=== PATIENT | female | born 1975 | race Caucasian/White ===

== ENCOUNTER → 2016-09-07 | Outpatient (CLI) | payer BC ==
[~2016-09-07] MED LIST: LEVO75TA PO; PRENTAB26 PO
== END | disposition home or self-care (01) ==
LOC: C.PAPS 10:32
PROVIDERS: ATTEND Physician Assistant
DX: Z01.419 Encounter for gynecological examination (general) (routine) without abnormal findings (principal)

== ENCOUNTER → 2017-08-28 | Outpatient (CLI) | payer BC ==
--- NOTE | 2017-09-04 08:12 | CODING QUERY MEDICAL NECESSITY ---
CQTREATMENT RENDERED WITHOUT A DIAGNOSIS To promote full compliance with coding requirements relating to patient care, physician participation is requested in all cases of engraver machine uncertainty. Please assist us with providing a diagnosis/symptom for the test(s) below: A diagnosis/symptom was not documented on your Order. A valid diagnosis/symptom is required to bill all insurances. Please remember that we are unable to code a diagnosis of rule out, probable, possible, questionable, or suspected. Tests that require a diagnosis: DOS 08/28/17 STREP SCREEN THROAT Provider Signature: Date: Thank you Sofie Resendiz Health Information Management Once completed, please kindly fax back to [phone] For questions please call [phone]
== END | disposition home or self-care (01) ==
LOC: C.LAB 16:49
PROVIDERS: ATTEND Internal Medicine Hematology & Oncology
DX: J02.9 Acute pharyngitis, unspecified (principal)

== ENCOUNTER → 2017-08-30 | Outpatient (CLI) | payer BC ==
--- NOTE | 2017-09-02 13:58 | MAMMOGRAPHY REPORT ---
BILATERAL FIRST EVER DIGITAL SCREENING MAMMOGRAM TOMOSYNTHESIS WITH CAD: 08/30/2017 CLINICAL HISTORY: Routine screening. Baseline exam. TECHNIQUE: Breast tomosynthesis in addition to standard 2D mammography was performed. Current study was also evaluated with a Computer Aided Detection (CAD) system. COMPARISON: No prior exams were available for comparison. BREAST COMPOSITION: There are scattered areas of fibroglandular density in both breasts. FINDINGS: There are prominent lymph nodes in bilateral axillary regions, which could be reactive due to a reported history of psoriasis, however, targeted ultrasound is recommended for further evaluatio n. Additionally, there is an ovoid 19 mm asymmetry seen within the left upper outer quadrant middle depth on the tomosynthesis images, which may represent normal fibroglandular tissue although spot com pression tomosynthesis views and possible breast ultrasound are recommended for further evaluation. The remainder of both breasts are negative, without suspicious masses, calcifications, or areas of ar chitectural distortion noted. IMPRESSION: ACR BI-RADS CATEGORY 0: INCOMPLETE EVALUATION: NEED ADDITIONAL IMAGING EVALUATION Prominent bilateral axillary lymph nodes and left upper outer quadrant asymmetry, for which additiona l imaging evaluation is recommended. The patient will be called to schedule an appointment. Approximately 10% of breast cancers are not detected with mammography. A negative mammographic report should not delay biopsy if a clinically suggestive mass is present. Padmaja Barajas M.D. ah/:08/30/2017 16:44:00 [employer] Service Manager: Ivanna SOLIS(Brianne)(M), [facility] letter sent: Addl Imaging 0 BI-RADS Code: ACR BI-RADS Category 0: Incomplete Evaluation: Need Additional Imaging Evaluation
== END | disposition home or self-care (01) ==
LOC: C.MAMM 07:49
PROVIDERS: ATTEND Obstetrics & Gynecology
DX: Z12.31 Encounter for screening mammogram for malignant neoplasm of breast (principal); N64.89 Other specified disorders of breast

== ENCOUNTER → 2017-09-17 | Outpatient (CLI) | payer BC ==
--- NOTE | 2017-09-18 07:58 | MAMMOGRAPHY REPORT ---
UNILATERAL LEFT DIGITAL DIAGNOSTIC MAMMOGRAM TOMOSYNTHESIS AND TARGETED BILATERAL ULTRASOUND: 8 CLINICAL HISTORY: 42-year-old woman called back from baseline screening mammogram for prominent bilat eral axillary lymph nodes and left upper outer quadrant asymmetry. Patient has a personal history of psoriatic arthritis and hidradenitis. TECHNIQUE: Spot compression CC and MLO tomosynthesis views of the left upper outer quadrant were perf ormed. COMPARISON: Comparison is made to exam dated: 08/30/2017 mammogram - [facility]. BREAST COMPOSITION: There are scattered areas of fibroglandular density in the left breast. FINDINGS: There is effacement of the focal asymmetry in the upper outer middle to posterior left sola ast with the supplemental spot compression tomosynthesis images. No definite evidence of a persisten t mass, focal area of architectural distortion or other suspicious abnormality. Further evaluation w ith ultrasound was performed. Targeted ultrasound was performed throughout the left upper outer quadrant and the right and left axi lla. In the left upper outer quadrant, sonographically normal dense glandular tissue is seen without a suspicious solid or cystic mass. Ultrasound performed in both axillary regions demonstrates a few plump lymph nodes with cortical thickness measuring at or just above the upper limits of normal, ran ging from 2-3.3 mm. Although the lymph nodes could be due to the patient's psoriatic arthritis or hi dradenitis, given the slightly thickened cortices, definitive characterization with ultrasound-guided core biopsy of the most prominent lymph node in the 1:00 left breast 11 cm from the nipple is recomm ended. (The ultrasound images are mislabeled as 3:00 left breast, 11 cm from the nipple.) IMPRESSION: ACR BI-RADS CATEGORY 4: SUSPICIOUS, TARGETED ULTRASOUND ACR BI-RADS CATEGORY 4: SUSPICIO US 1. There is effacement of the focal asymmetry in the upper outer quadrant of the left breast with penn pplemental spot compression tomosynthesis images, and no suspicious sonographic correlate identified. This most likely represented normal overlapping fiber glandular tissue. No further close follow-up is needed at this time. 2. There are plump bilateral axillary lymph nodes, with the most prominent lymph node identified in the 1:00 left breast, 11 cm from the nipple, in the axillary tail region. Although the lymph nodes c ould be enlarged due to hidradenitis orpsoriatic arthritis, definitive characterization with ultrasou nd-guided core biopsy of the most prominent lymph node in the left axillary tail is recommended. These results and recommendations were discussed with the patient at the time of the exam. Approximately 10% of breast cancers are not detected with mammography. A negative mammographic report should not delay biopsy if a clinically suggestive mass is present. Monse Serrano M.D. ay/:09/17/2017 09:24:34 Row Boss: Evelia SOLIS(Brianne)(Mercedes), [facility] letter sent: Abnormal 4/5 BI-RADS Code: ACR BI-RADS Category 4: Suspicious Ultrasound BI-RADS: ACR BI-RADS Category 4: Suspici ous
== END | disposition home or self-care (01) ==
LOC: C.MAMM 08:35
PROVIDERS: ATTEND Obstetrics & Gynecology
DX: R92.8 Other abnormal and inconclusive findings on diagnostic imaging of breast (principal); N64.89 Other specified disorders of breast

== ENCOUNTER → 2017-10-09 | Outpatient (CLI) | payer BC ==
--- NOTE | 2017-10-09 11:05 | DIAGNOSTIC IMAGING REPORT ---
RIGHT WRIST 4 VIEWS CLINICAL HISTORY: Right wrist pain. FINDINGS: 4 views of the right wrist are obtained. No prior studies are available for comparison at the time of dictation. The skeletal structures are well mineralized. No fracture is seen. There is negative ulnar variance with mild degenerative change at the distal radioulnar joint. The joint spaces of the wrist are otherwise preserved. No erosive disease is identified. The overlying soft tissues are within normal limits. IMPRESSION: 1. No acute bony abnormality is seen in the right wrist. 2. Negative ulnar variance with mild degenerative change at the distal radioulnar articulation. Electronically signed by: Ti Dorsey M.D. 10/09/2017 11:03 AM Dictated Date/Time: 10/09/2017 10:57 AM
== END | disposition home or self-care (01) ==
LOC: C.RAD 10:00
PROVIDERS: ATTEND Family Medicine
DX: M25.531 Pain in right wrist (principal); L40.50 Arthropathic psoriasis, unspecified